=== PATIENT | male | born 1950 | race Caucasian/White ===

== ENCOUNTER → 2020-09-20 | Outpatient (CLI) | payer MEDICARE, OTHER ==
[~2020-09-20] MED LIST: ASPIR 8181 MG PO; BRILINTA 90 MG90 MG PO; GLUCOPHAGE 850850 MG PO; HABITROL 14 MG P1 EA TD; JANUVIA25 MG PO; LIPITOR TAB 2020 MG PO; LISINOPRIL10 MG PO; METOPROLOL TART25 MG PO; NITROGLYCERIN0.4 MG SL
== END ==
LOC: KOH-I 11:09
DX: Z12.2 Encounter for screening for malignant neoplasm of respiratory organs (principal); F17.210 Nicotine dependence, cigarettes, uncomplicated; R91.8 Other nonspecific abnormal finding of lung field; I25.10 Atherosclerotic heart disease of native coronary artery without angina pectoris
CPT/HCPCS: G0297

== ENCOUNTER → 2021-11-07 | Outpatient (CLI) | payer MEDICARE, OTHER | LOC: KOH-I 15:30 | DX: F17.210 Nicotine dependence, cigarettes, uncomplicated (principal); R91.8 Other nonspecific abnormal finding of lung field | CPT/HCPCS: 71271 ==